=== PATIENT | male | born 1995 | race Caucasian/White ===

== ENCOUNTER 2025-09-13 09:37 | Emergency (ER) | payer BC ==
[~2025-09-13] VITALS: Ht 177.8 cm; Wt 100.0 kg
[2025-09-13 09:45] VITALS: O2SAT 99
[2025-09-13 10:10] LABS: BASOPHILS % 0.6 % (0.0-2.0); EOSINOPHILS % 1.5 % (0.0-5.0); HEMATOCRIT. 45.1 % (42.0-52.0); HEMOGLOBIN. 15.1 g/dL (14.0-18.0); LYMPHOCYTES % 23.1 % (20.0-50.0); MEAN PLATELET VOLUME 9.3 fl (7.4-10.4); MONOCYTES % 7.1 % (2.0-8.0); NEUTROPHILS % 67.7 % (40.0-76.0); PLATELET 209 x1000/uL (130-400); RED BLOOD CELL COUNT 5.43 mill/uL (4.7-6.1); RED CELL DISTRIBUTION WIDTH 14.9 % (11.6-14.6)
[2025-09-13 10:31] LABS: CREATININE 1.1 mg/dL (0.6-1.3)
[2025-09-13 10:32] LABS: ETHANOL BLOOD < 10 mg/dL (<10); UREA NITROGEN BLOOD 12 mg/dL (9-23)
[2025-09-13 15:47] LABS: *AMPHETAMINES SCREEN URINE NEGATIVE (NEGATIVE)
[2025-09-13 15:48] LABS: *BARBITURATES SCREEN URINE NEGATIVE (NEGATIVE); *BENZODIAZEPINES SCREEN URINE NEGATIVE (NEGATIVE); *COCAINE SCREEN URINE NEGATIVE (NEGATIVE); CANNABINOID URINE SCREEN NEGATIVE (NEGATIVE); ECSTASY MDMA SCREEN URINE NEGATIVE (NEGATIVE); METHADONE URINE SCREEN NEGATIVE (NEGATIVE); OPIATES URINE SCREEN NEGATIVE (NEGATIVE); PHENCYCLIDINE URINE SCREEN NEGATIVE (NEGATIVE)
[2025-09-14 08:50] VITALS: BP 134/83; PULSE 71; RESP 12; TEMP 37; O2SAT 100
== END 2025-09-14 06:21 ==
LOC: ER 09:37
DX: R45.851 Suicidal ideations (principal); F31.9 Bipolar disorder, unspecified; Z20.822 Contact with and (suspected) exposure to COVID-19; Z79.899 Other long term (current) drug therapy
CPT/HCPCS: 36415; 80048; 80305; 80307; 80320; 80329; 85025; 87426; 93005; 99285; G0480